=== PATIENT | female | born 1960 | race African-American/Black ===

== ENCOUNTER 2016-08-22 13:11 | Emergency (ER) | payer OTHER ==
[~2016-08-22 13:11] MED LIST: AMLO1TAB95 PO; ASCO-78 PO; ASPI81TA2 PO; DEXT20TA24 PO; LORA10TA68 PO; LOSA1TAB18 PO; MULT-245 PO; NAPR220C4 PO; OMEG500C3 PO; OXYC-244 PO; PROAIR HFA8.5 GM INH; WARF6TAB PO
[2016-08-22 13:32] VITALS: BP 129/73
[2016-08-22 14:28] LABS: CALCIUM 9.9 mg/dL (8.5-10.1); CREATININE 1.1 mg/dL (0.6-1.0); GFR 61.9; POTASSIUM 3.1 mmol/L (3.5-5.1)
[2016-08-22 14:29] LABS: OBC FLU VALID
[2016-08-22] MEDS ORDERED: PROAIR HFA8.5 GM INH (14:29)
--- NOTE | 2016-08-22 14:29 | PHYS DOC ---
Past Medical History Past Medical History: Hypertension Past Surgical History: Cholecystectomy, Other Additional Past Surgical Histo: RIGHT KNEE Alcohol Use: Occasionally Drug Use: None Adult General Chief Complaint Chief Complaint: Congestion HPI HPI 56-year-old female presenting to the emergency department today with congestion and cough over the past 3 days. She's had watery diarrhea without any blood in her stools. She reports recent sick contacts in her household. Her sputum is clear. She denies nausea vomiting or fever. She has had myalgias. She also endorses chills. Onset 3 days. Location lungs. Duration intermittent. No alleviating factors present. Review of systems is negative for abdominal pain nausea vomiting. She denies chest pain. All other review of systems is negative unless otherwise noted in history of present illness. Review of Systems Review of Systems SEE ABOVE. Current Medications Current Medications Current Medications Medications (Trade) Dose Ordered Sig/Jeancarlos Start Time Stop Time Status Last Admin Dose Admin Albuterol Sulfate (Ventolin Neb Soln) 2.5 mg 1X ONCE 08/22/16 14:30 08/22/16 14:31 DC 08/22/16 15:02 2.5 MG Allergies Allergies Allergies Coded Allergies Type Severity Reaction Last Updated Verified Penicillins Adverse Reaction Mild 03/08/16 Yes Physical Exam Physical Exam Constitutional: Well developed, well nourished, no acute distress, non-toxic appearance. HENT: Normocephalic, atraumatic, bilateral external ears normal, oropharynx moist, no oral exudates, nose normal. [] Eyes: PERRLA, EOMI, conjunctiva normal, no discharge. [] Neck: Normal range of motion, no tenderness, supple, no stridor. Cardiovascular:Heart rate regular rhythm, no murmur [] Lungs & Thorax: Bilateral breath sounds clear to auscultation Abdomen: Bowel sounds normal, soft, no tenderness, no masses, no pulsatile masses. [] Skin: Warm, dry, no erythema, no rash. [] Back: No tenderness, no CVA tenderness. Extremities: No tenderness, no cyanosis, no clubbing, ROM intact, no edema. [] Neurologic: Alert and oriented X 3, normal motor function, normal sensory function, no focal deficits noted. [] Psychologic: Affect normal, judgement normal, mood normal. [] Current Patient Data Vital Signs Vital Signs Date Time Temp Pulse Resp B/P Pulse Ox O2 Delivery O2 Flow Rate FiO2 08/22/16 15:05 94 Room Air 08/22/16 13:32 99.6 82 14 129/73 99.6 Lab Values Laboratory Tests Test 08/22/16 13:55 08/22/16 14:05 Influenza Type A Antigen Negative (NEGATIVE) Influenza Type B Antigen Negative (NEGATIVE) White Blood Count 14.9x10^3/uL (4.0-11.0) H Red Blood Count 4.08x10^6/uL (3.50-5.40) Hemoglobin 13.3g/dL (12.0-15.5) Hematocrit 40.1% (36.0-47.0) Mean Corpuscular Volume 98fL (79-100) Mean Corpuscular Hemoglobin 33pg (25-35) Mean Corpuscular Hemoglobin Concent 33g/dL (31-37) Red Cell Distribution Width 14.1% (11.5-14.5) Platelet Count 175x10^3/uL (140-400) Neutrophils (%) (Auto) 70% (31-73) Lymphocytes (%) (Auto) 17% (24-48) L Monocytes (%) (Auto) 13% (0-9) H Eosinophils (%) (Auto) 0% (0-3) Basophils (%) (Auto) 1% (0-3) Neutrophils # (Auto) 10.3x10^3uL (1.8-7.7) H Lymphocytes # (Auto) 2.6x10^3/uL (1.0-4.8) Monocytes # (Auto) 1.9x10^3/uL (0.0-1.1) H Eosinophils # (Auto) 0.0x10^3/uL (0.0-0.7) Basophils # (Auto) 0.1x10^3/uL (0.0-0.2) Platelet Estimate Pending Sodium Level 137mmol/L (136-145) Potassium Level 3.1mmol/L (3.5-5.1) L Chloride Level 96mmol/L (98-107) L Carbon Dioxide Level 31mmol/L (21-32) Anion Gap 10 (6-14) Blood Urea Nitrogen 13mg/dL (7-20) Creatinine 1.1mg/dL (0.6-1.0) H Estimated GFR (Cockcroft-Gault) 61.9 Glucose Level 112mg/dL (70-99) H Calcium Level 9.9mg/dL (8.5-10.1) Laboratory Tests 08/22/16 14:05 Laboratory Tests 08/22/16 14:05 EKG EKG [] Course & Med Decision Making Course & Med Decision Making Pertinent Labs and Imaging studies reviewed. (See chart for details) [] 56-year-old female presenting to the emergency department with cough and congestion over the past few days. Vital signs unremarkable. Pertinent physical exam showed clear lungs. The patient was given nebulizer in the emergency department. Chest x-ray show probable pna. Blood work shows wbc count elevation. Influenza testing. Of note, the patient is not on warfarin currently. She was on warfarin after her knee surgery ppx a few months ago and now currently just takes aspirin. The patient was given antibiotics for pneumonia. The patient was subsequent discharged home to follow-up with her primary care physician over the next 2-3 days. Dragon Disclaimer Dragon Disclaimer This electronic medical record was generated, in whole or in part, using a voice recognition dictation system. Departure Departure Impression: Primary Impression: Cough Additional Impressions: Cough in adult Pneumonia Disposition: 01 HOME, SELF-CARE Condition: STABLE Referrals: NEAL BAR MD (PCP) Patient Instructions: Cough, Adult Additional Instructions: Thank you for allowing us to participate in your care today. Followup with your primary care physician in 3 days if your symptoms do not improve. If you do not have a primary care provider you can ask for a list of our primary care providers. Return to the emergency department you have any new or concerning findings. This should be evaluated by the primary care physician and any necessary consulting services for continued management within a few days after discharge. Return to emergency room if you have any new or concerning symptoms including but not limited to fever, chills, nausea, vomiting, intractable pain, any new rashes, chest pain, shortness of air, uncontrolled bleeding, difficulty breathing, and/or vision loss. Scripts Azithromycin (Azithromycin Tablet)250 Mg Tablet1 Pkg PO UD #6 TAB Prov:SERENE SHEN MD 08/22/16 Potassium Chloride 10 Meq Tablet.er10 Meq PO DAILY #7 TAB Prov:SERENE SHEN MD 08/22/16 Albuterol Sulfate (Proair Hfa Inhaler)8.5 Gm Hfa.aer.ad1 Puff INH PRN Q6HRS PRN SHORTNESS OF BREATH #1 INHALER Prov:SERENE SHEN MD 08/22/16 Problem Qualifiers SERENE SHEN MD Aug 22, 2016 14:29
[2016-08-22] MEDS ORDERED: ALBUTEROL SULFATE 2.5 MG/3 ML NEBU. NEB ONE (14:30)
[2016-08-22 14:54] LABS: BASO # 0.1 x10^3/uL (0.0-0.2); BASO % 1 % (0-3); EOS % 0 % (0-3); HEMATOCRIT 40.1 % (36.0-47.0); HEMOGLOBIN 13.3 g/dL (12.0-15.5); LYMPH # 2.6 x10^3/uL (1.0-4.8); LYMPH % 17 % (24-48); MEAN CORPUSCULAR HEMOGLOBIN 33 pg (25-35); MEAN CORPUSCULAR HGB CONC 33 g/dL (31-37); MEAN CORPUSCULAR VOLUME 98 fL (79-100); MONO % 13 % (0-9); NEUT % 70 % (31-73); PLATELET COUNT 175 x10^3/uL (140-400); RED BLOOD COUNT 4.08 x10^6/uL (3.50-5.40); RED CELL DISTRIBUTION WIDTH 14.1 % (11.5-14.5); WHITE BLOOD COUNT 14.9 x10^3/uL (4.0-11.0)
[2016-08-22] MEDS ORDERED: POTA10TA10 PO (14:58)
--- NOTE | 2016-08-22 15:23 | RAD ---
Indication cough for 4 days. Shortness of air. PA and lateral views of the chest were obtained. Comparison is made to a study 03/07/2016. There is now, in contrast to the previous exam, a triangular opacity in the right lower lung field on the frontal projection, probably in the lower lobe. Findings may reflect atelectasis or pneumonia. A parenchymal mass is less likely but not entirely excluded. Follow-up imaging, to resolution, advised. The left lung is clear. The heart and pulmonary vessels are within normal limits. There is no significant pleural fluid in either lung. IMPRESSION: New parenchymal opacity, suggesting an area of atelectasis or pneumonia, in the right lower lung field. Follow-up imaging, to resolution, advised
[2016-08-22] MEDS ORDERED: AZIT250T6 PO (15:53)
[2016-08-22 17:25] LABS: NUCLEATED RBC 1; PLT ESTIMATE ADEQUATE (ADEQUATE)
== END 2016-08-22 16:09 | disposition home or self-care (01) ==
LOC: ER 13:11
DX: R05 Cough (principal); J18.9 Pneumonia, unspecified organism; I10 Essential (primary) hypertension; Z88.0 Allergy status to penicillin
CPT/HCPCS: 36415; 71020; 80048; 85007; 85027; 87804; 94250; 94640; 99285-25

== ENCOUNTER → 2019-06-14 | Day surgery (SDC) | payer MEDICAID ==
[~2019-06-14] MED LIST changes: +ALBU2.5V8 INH; +ASPI-630 PO; -ASPI81TA2 PO; +AZIT250T6 PO; +IV RINGERS,LACTATED 1000ML 1,000 ML IV SCH; +LIDOCAINE 2% PF 5 ML VIAL. ONE; -LOSA1TAB18 PO; +LOSA1TAB25 PO; -OXYC-244 PO; +OXYC1TAB19 PO; +POTASSIUM CHLO10 ME1 PO; -PROAIR HFA8.5 GM INH; +PROPOFOL 60 ML IV ONE; -WARF6TAB PO; +WARF6TAB49 PO
[2019-06-14 11:12] VITALS: BP 167/91
--- NOTE | 2019-06-17 16:06 | PATHOLOGY ---
[facility] Accession Number: [id number] . 01 Material submitted: . PART A: rectum - RECTAL POLYP PART B: colon - RANDOM COLON BIOPSY . 01 Clinical history: . Abdominal pain, dysphagia . 02 Diagnosis: A. Rectal polyp, biopsy: - Tubular adenoma. - Negative for high grade dysplasia. . B. Random colon, biopsy: - Fragments of unremarkable colonic mucosa and associated lymphoid aggregates. - There is no evidence of microscopic colitis or inflammatory bowel disease. (MAP/db; 06/17/19) LBQ 06/17/2019 1243 Local . 02 Electronically signed: . Sukhdev Jordan MD, Pathologist NPI- [id number] . 01 Gross description: . A. Received in formalin labeled "[place]iego, Annel, rectal polyp," is a single segment of drummond soft tissue measuring 0.4 cm in maximum dimension. The specimen is entirely submitted in cassette A1. . B. Received in formalin labeled "[place], Annel, random colon BX for diarrhea," are multiple segments of drummond soft tissue measuring 2.0 x 0.5 x 0.1 cm in aggregate dimensions. The specimen is filtered and entirely submitted in cassette B1. (TSD; 06/14/2019) TOB/TOB 06/14/2019 2221 Local . 02 Pathologist provided ICD-10: D12.8, R10.9, R13.10 . 02 CPT . 548027, 628430 Specimen Comment: A courtesy copy of this report has been sent to [phone], [phone] Specimen Comment: [id number] Specimen Comment: Report sent to / DR BAR Performed at: [address], [place], [place] [id number] MD Bret Magaña MD Phone: [phone] Performed at: [address] [id number] MD Papito Rojas MD Phone: [phone]
== END ==
LOC: ENDOS 09:07
PROVIDERS: ATTEND Internal Medicine Gastroenterology
DX: R19.7 Diarrhea, unspecified (principal); K29.50 Unspecified chronic gastritis without bleeding; K22.2 Esophageal obstruction; K57.30 Diverticulosis of large intestine without perforation or abscess without bleeding; K64.0 First degree hemorrhoids; K21.9 Gastro-esophageal reflux disease without esophagitis; I10 Essential (primary) hypertension; F15.90 Other stimulant use, unspecified, uncomplicated; F17.210 Nicotine dependence, cigarettes, uncomplicated; Z88.0 Allergy status to penicillin; Z72.89 Other problems related to lifestyle; Z98.890 Other specified postprocedural states
CPT/HCPCS: 43235; 43450; 45380; 88305; J2001; J2704